=== PATIENT | female | born 1965 | race American Indian/Alaskan Native ===

== ENCOUNTER 2017-06-29 11:40 | Outpatient (CLI) | payer OTHER ==
--- NOTE | 2017-06-30 14:51 | Mammography Report ---
BILATERAL DIGITAL SCREENING MAMMOGRAM with CAD : 06/29/17 11:40:00 CLINICAL: Routine screening.History of bilateral cysts. COMPARISON:08/13/15 FINDINGS: The breasts are heterogeneously dense, which may obscure small masses.The breasts are less dense with decreased size and number of bilateral cysts. Bilateral benign calcifications. No mass, architectural distortion or suspicious calcifications. IMPRESSION: No mammographic evidence of malignancy. BI-RADS CATEGORY: 2 -- Benign RECOMMENDATION: Routine mammographic screening in one year. COMMENT: Patient follow-up letters are generated by our [email or web address] application.
== END 2017-06-29 11:41 | disposition home or self-care (01) ==
LOC: SPVWC 11:40
PROVIDERS: ATTEND Family Medicine
DX: Z12.31 Encounter for screening mammogram for malignant neoplasm of breast (principal)
CPT/HCPCS: 77067; G0202

== ENCOUNTER 2018-10-18 11:09 | Outpatient (CLI) | payer OTHER ==
--- NOTE | 2018-10-19 08:54 | Ultrasound Report ---
THYROID ULTRASOUND:10/18/18 11:09:00 CLINICAL: Goiter. FINDINGS: High-resolution ultrasound demonstrated an enlarged thyroid with diffuse heterogeneous nodular echo pattern. However, no distinct measurable nodules are identified. No mass. The right lobe measures 5.0 x 3.4 x 2.5cm. The left lobe measures 5.4 x 3.3 x 2.5. The isthmus measures 1.4 cm AP thickness. A complex cyst of the isthmus measures 9 x 7 x 5 mm. IMPRESSION: Multinodular goiter with no dominant nodule. No mass. A benign complex cyst of the isthmus.
--- NOTE | 2018-10-19 09:05 | Mammography Report ---
BILATERAL DIGITAL SCREENING MAMMOGRAM with CAD : 10/18/18 11:09:00 CLINICAL: Routine screening.History of bilateral cysts. COMPARISON:06/29/17 and 08/13/15 FINDINGS: The breasts are heterogeneously dense, which may obscure small masses.Scattered bilateral benign calcifications. Previously confirmed bilateral cysts are smaller. No mass, architectural distortion or suspicious calcifications. IMPRESSION: No mammographic evidence of malignancy. BI-RADS CATEGORY: 2 -- Benign RECOMMENDATION: Routine mammographic screening in one year. COMMENT: Patient follow-up letters are generated by our [employer] application.
== END 2018-10-18 11:10 | disposition home or self-care (01) ==
LOC: SPVWC 11:09
PROVIDERS: ATTEND Family Medicine
DX: Z12.31 Encounter for screening mammogram for malignant neoplasm of breast (principal); E04.2 Nontoxic multinodular goiter
CPT/HCPCS: 76536; 77067